=== PATIENT | male | born 1945 | race Caucasian/White ===

== ENCOUNTER 2017-07-18 12:48 | Emergency (ER) | payer OTHER, BC ==
[~2017-07-18] VITALS: Ht 188 cm; Wt 121.6 kg
[2017-07-18 12:53] VITALS: BP 177/110
[2017-07-18] MEDS ORDERED: IND20 PO (12:59)
[2017-07-18] MEDS ORDERED: METO25TA PO (12:59)
--- NOTE | 2017-07-18 13:00 | NUR ---
Pt ambulated to bed 10.
--- NOTE | 2017-07-18 13:24 | NUR ---
PATIENT IS A 71 YO MALE BIB SELF FOR ELEVATED BP HE IS AWAKE AND ALERT IN NO ACUTE DISTRESS.
[2017-07-18 13:31] VITALS: BP 162/86
--- NOTE | 2017-07-18 13:32 | NUR ---
Patient discharged with v/s stable. Written and verbal after care instructions given and explained. Patient alert, oriented and verbalized understanding of instructions. Ambulatory with steady gait. All questions addressed prior to discharge. ID band removed. Patient advised to follow up with PMD. Rx of HCTZ given. Patient educated on indication of medication including possible reaction and side effects. Opportunity to ask questions provided and answered.
== END 2017-07-18 13:32 | disposition home or self-care (01) ==
LOC: MED 12:48
DX: I10 Essential (primary) hypertension (principal); E78.5 Hyperlipidemia, unspecified
CPT/HCPCS: 99283